=== PATIENT | female | born 1965 | race Caucasian/White ===

== ENCOUNTER → 2022-05-15 | Outpatient (REF) | payer OTHER ==
[2022-05-15 17:46] LABS: C REACTIVE PROTEIN QUANTITATIV 0.51 MG/DL (0.00-0.30)
[2022-05-17 14:08] LABS: SSA SJOGRENS A <0.2 AI (0.0-0.9); SSB SJOGRENS B <0.2 AI (0.0-0.9)
== END ==
LOC: M SFHCRHEU 14:23
PROVIDERS: ATTEND Internal Medicine
DX: H04.129 Dry eye syndrome of unspecified lacrimal gland (principal); K74.3 Primary biliary cirrhosis; M79.10 Myalgia, unspecified site

== ENCOUNTER 2023-10-22 15:18 | Emergency (ER) | payer OTHER ==
[~2023-10-22] VITALS: Ht 157.5 cm; Wt 72.0 kg
[2023-10-22 19:03] LABS: BASO % 0.7 % (0.0-1.0); EOS # 0.2 10^3/uL (0.0-0.5); EOS % 2.5 % (0.0-3.0); HEMATOCRIT 39.2 % (36.0-47.0); HEMOGLOBIN 12.9 g/dl (12.0-15.5); LYMPH # 1.8 10^3/uL (1.5-5.0); LYMPH % 28.8 % (24.0-44.0); MEAN CORPUSCULAR HEMOGLOBIN 30.8 pg (27.0-33.0); MEAN CORPUSCULAR HGB CONC 32.9 g/dl (32.0-36.5); MEAN CORPUSCULAR VOLUME 93.6 fl (80.0-96.0); MONO # 0.5 10^3/uL (0.0-0.8); MONO % 7.6 % (2.0-8.0); NEUTROPHILS # 3.7 10^3/uL (1.5-8.5); NEUTROPHILS % 60.2 % (36.0-66.0); PLATELET COUNT, AUTOMATED 194 10^3/uL (150-450); RED BLOOD COUNT 4.19 10^6/uL (4.00-5.40); WHITE BLOOD COUNT 6.1 10^3/uL (4.0-10.0)
[2023-10-22 19:29] LABS: LIPASE 47 U/L (12-53)
[2023-10-22 19:31] LABS: ALBUMIN 3.4 G/DL (3.2-5.2); ALKALINE PHOSPHATASE 112 U/L (46-116); ALT/SGPT 34 U/L (7.0-40); AST/SGOT 21 U/L (<34); BILIRUBIN,DIRECT 0.2 MG/DL (<0.4); BILIRUBIN,TOTAL 0.6 MG/DL (0.3-1.2); BLOOD UREA NITROGEN 12 MG/DL (9-23); CALCIUM LEVEL 8.7 MG/DL (8.5-10.1); CARBON DIOXIDE LEVEL 24 MMOL/L (20-31); CHLORIDE LEVEL 109 MMOL/L (98-107); GLOMERULAR FILTRATION RATE > 60.0 (>51); GLUCOSE, FASTING 89 MG/DL (60-100); POTASSIUM SERUM 3.7 MMOL/L (3.5-5.1); SODIUM LEVEL 142 MMOL/L (136-145); TOTAL PROTEIN 6.3 G/DL (5.7-8.2)
[2023-10-22 20:00] VITALS: BP 125/65; TEMP 98.5; O2SAT 99
== END 2023-10-22 20:35 | disposition home or self-care (01) ==
LOC: M ED 15:18
DX: N20.1 Calculus of ureter (principal); F17.200 Nicotine dependence, unspecified, uncomplicated; Z86.79 Personal history of other diseases of the circulatory system; Z87.442 Personal history of urinary calculi; Z91.013 Allergy to seafood; Z91.030 Bee allergy status; Z88.8 Allergy status to other drugs, medicaments and biological substances

== ENCOUNTER → 2024-02-20 | Outpatient (REF) | payer OTHER ==
[2024-02-20 15:47] LABS: APPEARANCE, URINE CLEAR (CLEAR); BACTERIA, URINE AUTO 1+ (NEGATIVE); BILIRUBIN, URINE AUTO NEGATIVE (NEGATIVE); BLOOD, URINE BLOOD NEGATIVE (NEGATIVE); COLOR, URINE YELLOW (YELLOW); GLUCOSE, URINE (UA) AUTO NEGATIVE (NEGATIVE); KETONE, URINE AUTO NEGATIVE (NEGATIVE); LEUKOCYTE ESTERASE, URINE AUTO TRACE (NEGATIVE); MUCUS, URINE SMALL (NEGATIVE); NITRITE, URINE AUTO NEGATIVE (NEGATIVE); PROTEIN, URINE AUTO NEGATIVE (NEGATIVE); RBC, URINE AUTO 0 /HPF (0-3); SPECIFIC GRAVITY URINE AUTO 1.009 (1.002-1.035); SQUAMOUS EPITHELIAL CELL UR AU 1 /HPF (0-6); TRANSITIONAL EPITHELIAL AUTO <1 /HPF; UROBILINOGEN, URINE AUTO 0.2 mg/dL (0.0-2.0); WBC, URINE AUTO 22 /HPF (0-3)
== END ==
LOC: EEVIPCON 15:24 → M SFHCPLAZ 15:24
PROVIDERS: ATTEND Internal Medicine Infectious Disease
DX: Z86.19 Personal history of other infectious and parasitic diseases (principal)